=== PATIENT | female | born 1955 | race Caucasian/White ===

== ENCOUNTER → 2022-11-17 | Day surgery (SDC) | payer MEDICARE, OTHER ==
--- NOTE | 2022-11-17 10:29 | MM ---
Date of Procedure: 11/17/22 Preoperative Diagnosis: Microcalcifications of concern right breast Postoperative Diagnosis: Same Procedure(s) Performed: Right breast stereotactic core biopsy Anesthesia: local Surgeon: Azeb Mondragon Pathology: other (Breast tissue with microcalcifications of concern) Condition: stable Disposition: same day Indications for Procedure: Microcalcifications of concern right breast Operative Findings: Radiographic specimen reveals microcalcifications of concern right breast Description of Procedure: The patient is a 67-year-old white female who underwent a routine screening mammogram was noted to have microcalcifications of concern in the right breast in the upper outer quadrant region. Physical examination did not reveal any discrete dominant masses or nodules of concern. Stereotactic core biopsy was recommended. The patient understood and wished to proceed. The patient was taken to the stereotactic core biopsy room. She was positioned prone on the lo-rad table. A product development actuary film was obtained. The lesion of concern was identified. The lesion was targeted. The breast was prepped using Betadine. 20 mL of 1% lidocaine was used to anesthetize the area of concern. A 9-gauge vacuum-assisted core rotating biopsy needle was driven to the correct coordinates. The patient had a prefire film obtained. The needle was noted to be in the correct location. The needle was fired. A postoperative film was obtained and the needle was noted to be in the correct location. 14 core biopsy specimens were obtained. Radiograph of the specimen revealed the microcalcifications of concern had been adequately sampled. A secure ralph top hat clip was placed. This was noted to be in the correct location. The specimen was sent to pathology. The patient will follow with Dr. Jones next week. [facility] HOSPITALPrasanth
== END ==
LOC: RADMAMWWP 07:13
PROVIDERS: ATTEND Surgery
DX: D05.11 Intraductal carcinoma in situ of right breast (principal)
CPT/HCPCS: 19081; 88305; 88342; 88341; A4648

== ENCOUNTER → 2022-11-17 | Outpatient (CLI) | payer MEDICARE, OTHER ==
[2022-11-17 07:40] VITALS: BP 153/84; PULSE 51; RESP 17; TEMP 97.9
--- NOTE | 2022-11-17 07:58 | P.GSHP ---
History of Present Illness H&P Date: 11/17/22 Chief Complaint: Abnormal right breast mammogram Erum is a 67-year-old white female seen in consultation for Pineda Ayala regarding the right breast mammographic abnormality. She underwent a bilateral mammogram and 2823. This revealed the area of concern in the right breast and a right breast diagnostic mammogram on 10-17-22 was performed. This revealed suspicious calcifications the upper outer quadrant of the right breast. Stereotactic core biopsy was recommended. The patient states the right breast feels aching, and some fullness is noted in the OUQ of the right breast. It has been aching for about 6 months. She is not compaining of any nipple discharge. Not complaining of any recent trauma or infection in the breast. She has not had any surgery on her breast. CAffiene: 1 cup/day nicotine: none chocolate: rare BCP: 15 years hormones: patch fro 6 months at menopause Family History: sister: breast cancer dx. at 56 father: testicular cancer Hormonal history: Menarche: 14 , breast fed: yes, age at first : 26 menopause: 43 Surgical History: subtotal thyroidectomy goiter no cancer tonsil 2 C-sections Medical History: COPD essential termers 1 1/2 years ? cause SociaL History: nicotine: none alcohol: none drugs: none - Constitutional Constitutional: Denies chills, Denies fever - EENT Eyes: denies blurred vision, denies pain Ears: deny: decreased hearing, tinnitus Ears, nose, mouth and throat: Denies headache, Denies sore throat - Breasts Breasts: bilateral: as per HPI - Cardiovascular Comment: COPD Cardiovascular: Reports shortness of breath, Denies chest pain - Respiratory Comment: COPD - Gastrointestinal Gastrointestinal: Denies abdominal pain, Denies diarrhea, Denies nausea, Denies vomiting - Genitourinary (Female) Genitourinary: Denies dysuria, Denies hematuria - Menstruation Menstruation: Reports postmenopausal - Musculoskeletal Musculoskeletal: Denies myalgias - Integumentary Comment: Rosacia Integumentary: Reports rash, Denies pruritus - Neurological Neurological: Reports as per HPI - Psychiatric Psychiatric: Denies anxiety, Denies depression - Endocrine Endocrine: Denies fatigue, Denies weight change - Hematologic/Lymphatic Comment: none - Allergic/Immunologic Allergic/Immunologic: Reports seasonal allergies Past Medical History Past Medical History: Asthma Additional Past Medical History / Comment(s): Allergies History of Any Multi-Drug Resistant Organisms: None Reported Past Surgical History: Section, Tonsillectomy Additional Past Surgical History / Comment(s): Partial Thyroidectomy Past Anesthesia/Blood Transfusion Reactions: No Reported Reaction Past Psychological History: No Psychological Hx Reported Smoking Status: Never smoker Past Alcohol Use History: None Reported Past Drug Use History: None Reported Medications and Allergies Home Medications Medication Instructions Recorded Confirmed Type Budesonide-Formot 160-4.5 Mcg 2 puff INHALATION BID 11/08/22 11/17/22 History [Symbicort 160-4.5 Mcg Inhaler] Loratadine [Claritin] 10 mg PO DAILY 11/08/22 11/17/22 History Montelukast [Singulair] 10 mg PO DAILY 11/08/22 11/17/22 History Propranolol [Inderal] 20 mg PO BID 11/08/22 11/17/22 History Allergies Allergy/AdvReac Type Severity Reaction Status Date / Time Sulfa (Sulfonamide Allergy Rash/Hives Verified 11/17/22 07:36 Antibiotics) Surgical - Exam Vital Signs Temp Pulse Resp BP Pulse Ox 97.9 F 51 L 17 153/84 98 11/17/22 07:36 11/17/22 07:36 11/17/22 07:36 11/17/22 07:36 11/17/22 07:36 BMI: 24.2 - General no distress - Eyes normal ocular movement - Neck trachea midline - Respiratory normal respiratory effort, clear to auscultation - Cardiovascular Rhythm: regular Heart Sounds: normal: S1, S2 - Abdomen Abdomen: soft, non tender, no guarding, no rigid, no rebound - Integumentary normal turgor - Neurologic no disoriented, no combative - Musculoskeletal normal gait - Psychiatric oriented to time, oriented to person, oriented to place, speech is normal, memory intact Breast Exam: BRA: 36B Inspection: Right breast slightly larger than the left breast, bilateral grade 2 ptosis Palpation: Right breast: Multi-positional exam fibrocystic changes, dense breasts no dominant masses or nodules of concern Right axilla: No adenopathy of concern Left breast: Multi-positional exam fibrocystic changes no dominant masses or nodules of concern slightly less dense than the right breast Left axilla: No adenopathy of concern Results Mammogram reviewed microcalcifications of concern right breast upper outer quadrant Assessment and Plan Assessment: Impression: Abnormal right breast mammogram Right breast slightly larger than left breast Fibrocystic breast changes Family history of cancer COPD Status post subtotal thyroidectomy Plan: Stereotactic core biopsy right breast Risk and benefits of the procedure discussed with the patient. Risks include but are not limited to bleeding, infection, reaction to the anesthetic. If the biopsy results were discordant further tissue acquisition may be necessary. Patient understands and wishes to proceed. Cc: Mariah Ayala
== END ==
LOC: WWCWWP 07:09
PROVIDERS: ATTEND Surgery
DX: R92.8 Other abnormal and inconclusive findings on diagnostic imaging of breast (principal); J44.9 Chronic obstructive pulmonary disease, unspecified; J45.909 Unspecified asthma, uncomplicated; Z88.2 Allergy status to sulfonamides

== ENCOUNTER → 2022-11-24 | Outpatient (CLI) | payer MEDICARE, OTHER ==
[2022-11-24 08:44] VITALS: BP 158/85; PULSE 49; RESP 17; TEMP 98
--- NOTE | 2022-11-24 08:48 | P.PN ---
Subjective Progress Note Date: 11/24/22 Principal diagnosis: high grade DCIS right breast Erum is a 67-year-old white female seen in consultation for Pineda Ayala regarding the right breast mammographic abnormality. She underwent a bilateral mammogram and 2823. This revealed the area of concern in the right breast and a right breast diagnostic mammogram on 10-17-22 was performed. This revealed suspicious calcifications the upper outer quadrant of the right breast. Stereotactic core biopsy was recommended. The patient states the right breast feels aching, and some fullness is noted in the OUQ of the right breast. It has been aching for about 6 months. She is not compaining of any nipple discharge. Not complaining of any recent trauma or infection in the breast. She has not had any surgery on her breast. 11-24-22 Erum underwent a stero tactic biopsy of the right breast on 11-17-22. Pathology was high grade DCIS. It extends about 2.5 cm. she tolerated the procedure without difficulty. CAffiene: 1 cup/day nicotine: none chocolate: rare BCP: 15 years hormones: patch fro 6 months at menopause Family History: sister: breast cancer dx. at 56 father: testicular cancer Hormonal history: Menarche: 14 , breast fed: yes, age at first : 26 menopause: 43 Surgical History: subtotal thyroidectomy goiter no cancer tonsil 2 C-sections Medical History: COPD essential termers 1 1/2 years ? cause SociaL History: nicotine: none alcohol: none drugs: none - Constitutional Constitutional: Denies chills, Denies fever - EENT Eyes: denies blurred vision, denies pain Ears: deny: decreased hearing, tinnitus Ears, nose, mouth and throat: Denies headache, Denies sore throat - Breasts Breasts: bilateral: as per HPI - Cardiovascular Comment: COPD Cardiovascular: Reports shortness of breath, Denies chest pain - Respiratory Comment: COPD - Gastrointestinal Gastrointestinal: Denies abdominal pain, Denies diarrhea, Denies nausea, Denies vomiting - Genitourinary (Female) Genitourinary: Denies dysuria, Denies hematuria - Menstruation Menstruation: Reports postmenopausal - Musculoskeletal Musculoskeletal: Denies myalgias - Integumentary Comment: Rosacia Integumentary: Reports rash, Denies pruritus - Neurological Neurological: Reports as per HPI - Psychiatric Psychiatric: Denies anxiety, Denies depression - Endocrine Endocrine: Denies fatigue, Denies weight change - Hematologic/Lymphatic Comment: none - Allergic/Immunologic Allergic/Immunologic: Reports seasonal allergies Past Medical History Past Medical History: Asthma Additional Past Medical History / Comment(s): Allergies History of Any Multi-Drug Resistant Organisms: None Reported Past Surgical History: Section, Tonsillectomy Additional Past Surgical History / Comment(s): Partial Thyroidectomy Past Anesthesia/Blood Transfusion Reactions: No Reported Reaction Past Psychological History: No Psychological Hx Reported Smoking Status: Never smoker Past Alcohol Use History: None Reported Past Drug Use History: None Reported Medications and Allergies Home Medications Medication Instructions Recorded Confirmed Type Budesonide-Formot 160-4.5 Mcg 2 puff INHALATION BID 11/08/22 11/17/22 History [Symbicort 160-4.5 Mcg Inhaler] Loratadine [Claritin] 10 mg PO DAILY 11/08/22 11/17/22 History Montelukast [Singulair] 10 mg PO DAILY 11/08/22 11/17/22 History Propranolol [Inderal] 20 mg PO BID 11/08/22 11/17/22 History Allergies Objective - Vital Signs Vital signs: Intake & Output 11/23/22 11/24/22 11/24/22 18:59 06:59 18:59 Weight 58.06 kg - Constitutional General appearance: Present: cooperative - EENT Eyes: Present: EOMI ENT: Present: hearing grossly normal - Neck Neck: Present: normal ROM - Respiratory Respiratory: bilateral: CTA - Cardiovascular Rhythm: regular Heart sounds: normal: S1, S2 - Integumentary Integumentary: Present: normal turgor - Musculoskeletal Musculoskeletal: Present: gait normal - Psychiatric Psychiatric: Present: A&O x's 3, appropriate affect, intact judgment & insight - Additional findings Additional findings: Breast Exam: BRA: 36C Inspection: Right breast mild ecchymosis at biopsy site, no evidence of any infection or hematoma 6 examination taken from 11-17-21 Right breast slightly larger than left breast Palpation: Right breast multiple positional exam fibrocystic changes, dense breasts, no dominant masses or notches of concern Right axilla: No adenopathy of concern Left breast: Multi-positional exam fibrocystic changes no dominant masses or nodules of concern Left axilla: No adenopathy of concern Assessment and Plan Assessment: Pressure: DCIS right breast approximately 2.5 cm Right breast slightly larger than left Fibrocystic breast changes Family history of cancer COPD Status post subtotal thyroidectomy Plan: Presentation of case at tumor board Most likely needle localization lumpectomy with sentinel lymph node biopsy CC: Mariah Ayala
== END ==
LOC: WWCWWP 08:26
PROVIDERS: ATTEND Surgery
DX: D05.11 Intraductal carcinoma in situ of right breast (principal); N60.11 Diffuse cystic mastopathy of right breast; Z80.3 Family history of malignant neoplasm of breast; Z79.51 Long term (current) use of inhaled steroids; J44.9 Chronic obstructive pulmonary disease, unspecified; E89.0 Postprocedural hypothyroidism; Z88.2 Allergy status to sulfonamides

== ENCOUNTER 2023-01-17 10:37 | Day surgery (SDC) | payer MEDICARE, OTHER ==
[~2023-01-17 10:37] MED LIST: HEPARIN SODIUM,PORCINE/PF 5,000 UNIT/0.5 ML SYRINGE SQ PRN; Pre Op ABX Message 1 EACH MISC MISCELLANE ONE
[2023-01-17] MEDS ORDERED: ONDANSETRON 4 MG/2 ML VIAL IVP ONE (11:02)
[2023-01-17] MEDS ORDERED: MIDAZOLAM 2 MG/2 ML VIAL IV PRN (11:02)
[2023-01-17] MEDS ORDERED: LACTATED RINGERS 1,000 ML IV SCH (11:02)
[2023-01-17] MEDS ORDERED: HYDROmorphone 0.5 MG/0.5 ML SYRINGE IVP PRN (11:02)
[2023-01-17] MEDS ORDERED: LIDOCAINE 1% (10MG/ML) FOR IV START INTRADERMA PRN (11:02)
[2023-01-17] MEDS ORDERED: DEXAMETHASONE SOD PHOSPHATE 4 MG/ML 1 ML VIAL IV ONE (11:02)
[2023-01-17] MEDS ORDERED: LIDOCAINE 1% (10MG/ML) FOR IV START SQ ONE (12:08)
--- NOTE | 2023-01-17 12:35 | P.NAPBC ---
NAPBC Queries - NAPBC Queries Was patient's case review presented at [facility] tumor board? If no, comment.: Yes Was patient's pathology reviewed at [facility]? If no, comment.: Yes Was breast conservation surgery offered? If no, comment.: Yes Was sentinel node biopsy offered? If no, comment.: Yes Was diagnosis confirmed by percutaneous core biopsy? If no, comment.: Yes Is patient mastectomy patient?: No Was a preop referral to reconstructive surgeon offered?: No Clinical Stage: right breast stage O DCIS 2.5 CM
[2023-01-17] MEDS ORDERED: DEXAMETHASONE SOD PHOSPHATE 4 MG/ML 1 ML VIAL ONE (13:06)
[2023-01-17] MEDS ORDERED: MIDAZOLAM 2 MG/2 ML VIAL ONE (13:06)
[2023-01-17] MEDS ORDERED: GLYCOPYRROLATE 0.2 MG/ML 2 ML VIAL ONE (13:06)
[2023-01-17] MEDS ORDERED: SUCCINYLCHOLINE CHLORIDE 200 MG/10 ML VIAL IV ONE (13:06)
[2023-01-17] MEDS ORDERED: ONDANSETRON 4 MG/2 ML VIAL ONE (13:06)
[2023-01-17] MEDS ORDERED: LIDOCAINE 2% INJ 20 MG/ML (2 ML VIAL) ONE (13:06)
[2023-01-17] MEDS ORDERED: fentaNYL (PF) 50 MCG/ML 2 ML AMP ONE (13:06)
[2023-01-17] MEDS ORDERED: PHENYLEPHRINE-0.9% NACL SYG 1,000 MCG/10 ML SYRINGE ONE (13:06)
--- NOTE | 2023-01-17 14:27 | P.OP ---
Date of Procedure: 01/17/23 Preoperative Diagnosis: Right breast DCIS Postoperative Diagnosis: Same Procedure(s) Performed: Right breast needle localization lumpectomy, sentinel node biopsy, onco-plastic tissue transfer 32 centimeters squared Anesthesia: DALLASA Surgeon: Azeb Mondragon Estimated Blood Loss (ml): 10 IV fluids (ml): 500 Pathology: other ([place] node biopsy, lumpectomy specimen) Condition: stable Disposition: same day Indications for Procedure: Biopsy-proven DCIS right breast Operative Findings: Dense breast tissue Description of Procedure: The patient is a 67-year-old white female with a biopsy-proven DCIS of the right breast. She was initially seen in the radiology department where radioactive tracer was injected into the periareolar region as well as bracketing of the area of concern. The reason for sentinel node biopsy was secondary to the extent of the tumor. The patient was then taken to the operating room. Following induction of anesthesia the axilla was interrogated using the neoprobe. The patient was noted to have radioactivity in the axilla. The patient was then prepped and draped in a sterile fashion. The area of the axilla was approached initially. The incision was placed at the area of greatest radioactivity. Dissection down into the axilla revealed 2 sentinel lymph nodes. Both were resected using the Harmonic scalpel. The 10 second count on the first was 959, 10 second count of the second 9 mm 2483. The background count was minimal. After we were assured that hemostasis was attained the wound was well irrigated. The deep tissues were closed using 3-0 Vicryl suture. The skin was closed using 4-0 Monocryl. The area of the breast was then approached. An incision was made and carried down to the shaft of both needles. The needles were grasped using an Allis clamp. Dissection was performed onto the pectoralis muscle. Wide excision around the needles was performed. The cavity was well irrigated. The cavity was evaluated for hemostasis. The cavity was 6cm x 2 cm. The specimen was painted for orientation. Radiograph revealed that the area of concern had been removed. The cavity again was well irrigated. Titanium clips were placed. A superior piller of 5 x 2 cm was formed and an inferior pillar which was 5 x 2 cm was formed. After we were assured that hemostasis was attained the deep tissues were brought together using 3-0 Vicryl suture. Total onco- plastic tissue transfer was 32 cm. Following this the subcutaneous tissue was closed with 3-0 Vicryl suture followed by closure of the subcuticular tissue with 4-0 Monocryl. The patient tolerated the procedure in stable condition. All instrument and sponge counts were correct at the end of the case.
--- NOTE | 2023-01-17 14:29 | P.DS ---
Providers Attending physician: Azeb Mondragon Primary care physician: Kevin Smith Plan - Discharge Summary Discharge Rx Participant: No New Discharge Prescriptions: No Action Propranolol [Inderal] 20 mg PO BID Montelukast [Singulair] 10 mg PO DAILY Loratadine [Claritin] 10 mg PO DAILY Budesonide-Formot 160-4.5 Mcg [Symbicort 160-4.5 Mcg Inhaler] 2 puff INHALATION BID Clindamycin Phosphate [Clindagel 1%] 1 applic TOPICAL DAILY Discharge Medication List Budesonide-Formot 160-4.5 Mcg [Symbicort 160-4.5 Mcg Inhaler] 2 puff INHALATION BID 11/08/22 [History] Loratadine [Claritin] 10 mg PO DAILY 11/08/22 [History] Montelukast [Singulair] 10 mg PO DAILY 11/08/22 [History] Propranolol [Inderal] 20 mg PO BID 11/08/22 [History] Clindamycin Phosphate [Clindagel 1%] 1 applic TOPICAL DAILY 01/17/23 [History] Follow up Appointment(s)/Referral(s): Azeb Mondragon MD [STAFF PHYSICIAN] - 1 Week Activity/Diet/Wound Care/Special Instructions: do not drive for 24 hours after discharge or if taking narcotic pain medicine wear bra at all times May shower after 48 hours Discharge Disposition: HOME SELF-CARE
[2023-01-17 14:46] VITALS: TEMP 97
--- NOTE | 2023-01-17 15:00 | NM ---
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 The benefits, alternatives, and risks were discussed. An informed consent was then obtained. Overlying skin is cleaned with sterile alcohol. Following this, 475 uCi Tc99m Tilmanocept was inject ed in the upper outer aspect of the right nipple intradermally. The patient tolerated the procedure well without any immediate complication. The patient was kept in the radiology department for short stay after the procedure and then taken to surgery for surgical p rocedure what is presumed intraoperative gamma probe will be used for sentinel lymph node detection. IMPRESSION: Right breast radiotracer injection for sentinel node localization as above.
[2023-01-17 16:00] VITALS: BP 125/73; PULSE 67; RESP 20
--- NOTE | 2023-01-25 08:14 | MM ---
Pathology Description: Approach: Lateral to Medial Needle Type: 7 cm Kopan The procedure of needle localization with wire placement and than surgical excision was explained to the patient. Benefits, alternatives, and risks were discussed. An informed consent was then obtained. The shortest pathway for procedure was chosen. Shortest pathway was a lateral approach. Bracketing technique was utilized. The overlying skin was prepped and draped in usual sterile fashion. Lidocaine was used as anesthetic into the skin and subcutaneous tissue up to the level of area of concern. Anteriorly, a 7 cm Kopan's needle was used. Posteriorly, a 9 cm Kopan's needle was used. These were placed via a lateral approach under mammographic guidance. Subsequent 90 degrees mammogram show the needle to be in satisfactory position relative to the targeted area. At this point, wire was placed and the needle was withdrawn. The wire was fixed to patient's skin. Images were marked for surgeon. The patient tolerated the procedure well without any immediate complication. The patient was kept in the radiology department for short stay after the procedure and then taken to surgery for surgical excision. Targeted calcifications , biopsy clip, and both wires are identified in specimen mammogram. The patient was kept in hospital for short stay after the procedure and then discharged home in stable condition. IMPRESSION: Successful, uncomplicated needle localization with wire placement (bracketing technique) and surgical excision of biopsy-proven DCIS in the right breast, full pathology results to follow. Pathology Results: Result: Malignant, Ductal carcinoma in situ, comedo type. A. RIGHT BREAST, SENTINEL LYMPH NODE #1: Benign breast tissue with fibrocystic changes. No lymph node is identified. B. RIGHT BREAST, SENTINEL LYMPH NODE #2: Two lymph nodes negative for metastasis. CK7 and UMA immunoperoxidase stains performed on blocks B1 and B2 are confirmatory (controls appropriate). C. RIGHT BREAST, LUMPECTOMY: High grade ductal carcinoma in situ (DCIS) with lobular extension, comedo necrosis and calcifications focally involving the posterior margin and less than 1 mm from the superior margin. Other margins negative. See Surgical Pathology Cancer Case Summary. Notes SURGICAL PATHOLOGY CANCER CASE SUMMARY - INVASIVE CARCINOMA OF THE BREAST, RESECTION: PROCEDURE: Excision (less than total mastectomy). SPECIMEN LATERALITY: Right. HISTOLOGIC TYPE OF INVASIVE CARCINOMA: Ductal carcinoma in situ. SIZE (EXTENT)OF DCIS: Estimated size (extent) of DCIS is at least 2.1 cm by direct measurement. NUCLEAR GRADE: Grade 3. NECROSIS: Present, central (expansive "comedo" necrosis). MICROCALCIFICATIONS: Present in DCIS. MARGINS: DCIS focally involves the posterior margin and is focally less than 1 mm from the superior margin. Other margins negative. REGIONAL LYMPH NODES: NUMBER OF LYMPH NODES EXAMINED: 2 NUMBER OF SENTINEL NODES EXAMINED: 2 NUMBER OF LYMPH NODES WITH MACROMETASTASES, MICROMETASTASES, OR ISOLATED TUMOR CELLS: 0. PATHOLOGIC STAGE CLASSIFICATION (pTNM, AJCC 8TH Edition): PRIMARY TUMOR: pTis (DCIS). REGIONAL LYMPH NODES: (sn)pN0. DISTANT METASTASIS: Not applicable. ADDITIONAL FINDINGS: Previous biopsy site and fibrocystic changes. ANCILLARY STUDIES: ER and MA studies were performed on the previous core biopsy ([id number]). Overall Assessment: Malignant Management: Surgical Consultation of the right breast. Electronically signed and approved by: Juan F Sher M.D. Radiologist
== END 2023-01-17 16:49 | disposition home or self-care (01) ==
LOC: OR 10:37
PROVIDERS: ATTEND Surgery
DX: D05.11 Intraductal carcinoma in situ of right breast (principal)
CPT/HCPCS: 19301; 38525; 14001; 88342; 88307; 88341; 76098; 38792; C1819 ×2; A9520; J2250; J0330; J1100; J2405; J3010; J2370; J1644; J2001

== ENCOUNTER → 2023-01-26 | Outpatient (CLI) | payer MEDICARE, OTHER ==
[2023-01-26 14:28] VITALS: BP 134/77; PULSE 56; RESP 18; TEMP 97.8
--- NOTE | 2023-01-26 14:55 | P.PN ---
Progress Note - Text Progress Note Date: 01/26/23 Erum is a 67 white female status post [place] [id number]. Postoperatively she has done well. She did have a 2.1 cm area of DCIS which was grade 3. It was less than 1 mm from the superior margin. She had a focal area which was positive posteriorly. Posteriorly dissection was onto the pectoralis muscle. I discussed this with the patient and her sister. We'll cases going to be presented at tumor board and recommendation will either be for radiation with close surveillance or repeat resection in the operating room. Examination: Lungs: Clear Heart: Regular rate and rhythm Incisions: Clean and dry Impression: DCIS with close margins superior and focally positive margin on the pectoralis muscle ER/TX negative Plan: Presentation of case at tumor board Appointment with radiation oncology Follow-up here in 1 month CC: Mariah Ayala
== END ==
LOC: WWCWWP 14:16
PROVIDERS: ATTEND Surgery
DX: D05.11 Intraductal carcinoma in situ of right breast (principal); Z88.2 Allergy status to sulfonamides

== ENCOUNTER → 2023-03-02 | Outpatient (CLI) | payer MEDICARE, OTHER ==
[2023-03-02 09:13] VITALS: BP 134/73; PULSE 45; RESP 18; TEMP 98.1
--- NOTE | 2023-03-02 09:27 | P.PN ---
Progress Note - Text Progress Note Date: 03/02/23 Progress Note - Text Progress Note Date: 01/26/23 Erum is a 67 white female status post right breast lumpectomy and sentinel node biopsy on . Postoperatively she has done well. She did have a 2.1 cm area of DCIS which was grade 3. It was less than 1 mm from the superior margin. She had a focal area which was positive posteriorly. Posteriorly dissection was onto the pectoralis muscle. I discussed this with the patient and her sister. We'll cases going to be presented at tumor board and recommendation will either be for radiation with close surveillance or repeat resection in the operating room. Her case was presented at tumor board and 6622. It was felt that she did not need any further resection. She has high-grade DCIS which is ER/MT negative. She did have a positive focal area posteriorly and superiorly the lesion was less than 1 mm from the superior margin. Pathology was reviewed as well as her radiograph at tumor board. It was felt that she did not require be resection as her surgical resection was onto the pectoralis muscle. She is having radiation therapy. She is doing well at this time. Started her radiation therapy earlier this week. She is tolerating it without difficulty. Examination: Lungs: Clear Heart: Regular rate and rhythm Incisions: Clean and dry; mild erythema believed to be related to the radiation treatment Impression: DCIS with close margins superior and focally positive margin on the pectoralis muscle ER/MT negative Plan: Presentation of case at tumor board done on 6622 Started radiation therapy 02-28-23 Follow-up here in 4 months CC: Mariah Ayala Additional CC's: Mariah Ayala
== END ==
LOC: WWCWWP 09:01
PROVIDERS: ATTEND Surgery
DX: D05.11 Intraductal carcinoma in situ of right breast (principal); Z17.1 Estrogen receptor negative status [ER-]; Z90.11 Acquired absence of right breast and nipple; Z88.2 Allergy status to sulfonamides

== ENCOUNTER → 2023-07-20 | Outpatient (CLI) | payer MEDICARE, OTHER ==
[2023-07-20 16:05] VITALS: BP 114/74; PULSE 90; RESP 17; TEMP 97.8
--- NOTE | 2023-07-20 16:22 | P.PN ---
Subjective Progress Note Date: 07/20/23 Erum is a 67-year-old white female who was initially seen in consultation for Mariah Ayala regarding right breast mammographic abnormality. She underwent a bilateral mammogram on 2822. This revealed an area of concern in the right breast and right breast diagnostic mammogram was performed. This led to stero tactic core biopsy on this revealed high-grade DCIS. The area extended approximately 2.5 cm. She has not felt anything of concern in either breast. She was not complaining of any recent trauma or infection in the breast. The patient on 01-17-23 underwent lumpectomy and SNB. She had a 2.1 cm area of grade 3 DCIS, node (-). Close posterior margin represented at tumor board and re-excision not recommended. Note Dr. Wall reviewed completed radiation on 04-04-23 note 03-02-23 DR. Hall reviewed no endocrine therapy as hormone receptor (-) She has noted an area of tenderness in the lateral aspect of the left breast, it has not changed since her surgery CAffiene: 1 cup/day nicotine: none chocolate: rare BCP: 15 years hormones: patch fro 6 months at menopause Family History: sister: breast cancer dx. at 56 father: testicular cancer Hormonal history: Menarche: 14 , breast fed: yes, age at first : 26 menopause: 43 Surgical History: subtotal thyroidectomy goiter no cancer tonsil 2 C-sections Medical History: COPD essential termers 1 1/2 years ? cause SociaL History: nicotine: none alcohol: none drugs: none - Constitutional Constitutional: Denies chills, Denies fever - EENT Eyes: denies blurred vision, denies pain Ears: deny: decreased hearing, tinnitus Ears, nose, mouth and throat: Denies headache, Denies sore throat - Breasts Breasts: bilateral: as per HPI - Cardiovascular Comment: COPD Cardiovascular: Reports shortness of breath, Denies chest pain - Respiratory Comment: COPD - Gastrointestinal Gastrointestinal: Denies abdominal pain, Denies diarrhea, Denies nausea, Denies vomiting - Genitourinary (Female) Genitourinary: Denies dysuria, Denies hematuria - Menstruation Menstruation: Reports postmenopausal - Musculoskeletal Musculoskeletal: Denies myalgias - Integumentary Comment: Rosacia Integumentary: Reports rash, Denies pruritus - Neurological Neurological: Reports as per HPI - Psychiatric Psychiatric: Denies anxiety, Denies depression - Endocrine Endocrine: Denies fatigue, Denies weight change - Hematologic/Lymphatic Comment: none - Allergic/Immunologic Allergic/Immunologic: Reports seasonal allergies Past Medical History Past Medical History: Asthma Additional Past Medical History / Comment(s): Allergies History of Any Multi-Drug Resistant Organisms: None Reported Past Surgical History: Section, Tonsillectomy Additional Past Surgical History / Comment(s): Partial Thyroidectomy Past Anesthesia/Blood Transfusion Reactions: No Reported Reaction Past Psychological History: No Psychological Hx Reported Smoking Status: Never smoker Past Alcohol Use History: None Reported Past Drug Use History: None Reported Medications and Allergies Home Medications Medication Instructions Recorded Confirmed Type Budesonide-Formot 160-4.5 Mcg 2 puff INHALATION BID 11/08/22 11/17/22 History [Symbicort 160-4.5 Mcg Inhaler] Loratadine [Claritin] 10 mg PO DAILY 11/08/22 11/17/22 History Montelukast [Singulair] 10 mg PO DAILY 11/08/22 11/17/22 History Propranolol [Inderal] 20 mg PO BID 11/08/22 11/17/22 History Allergies Objective - Vital Signs Vital signs: Vital Signs Temp 97.8 F 07/20/23 15:59 Pulse 90 07/20/23 15:59 Resp 17 07/20/23 15:59 BP 114/74 07/20/23 15:59 Pulse Ox 97 07/20/23 15:59 FiO2 Intake & Output 07/19/23 07/20/23 07/20/23 18:59 06:59 18:59 Weight 59.874 kg - Constitutional General appearance: Present: cooperative - EENT Eyes: Present: EOMI ENT: Present: hearing grossly normal - Neck Neck: Present: normal ROM - Respiratory Respiratory: bilateral: CTA - Cardiovascular Rhythm: regular Heart sounds: normal: S1, S2 - Gastrointestinal General gastrointestinal: Present: soft - Integumentary Integumentary: Present: normal turgor - Musculoskeletal Musculoskeletal: Present: gait normal - Psychiatric Psychiatric: Present: A&O x's 3, appropriate affect, intact judgment & insight - Additional findings Additional findings: Breast Exam: BRA: 36C Inspection: Bilateral grade 2 ptosis, well-healed scar right breast from prior surgery Palpation: Right breast: Multi-positional exam fibrocystic changes, postradiation and surgical changes Right axilla: No adenopathy of concern Left breast: Multi-positional exam fibrocystic changes, no dominant masses or nodules of concern Left axilla: No adenopathy of concern Assessment and Plan Assessment: Impression: Patient doing well at this time status post right breast lumpectomy and radiation therapy for 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 Yee, Mariah Ayala
== END ==
LOC: WWCWWP 15:28
PROVIDERS: ATTEND Surgery
DX: Z12.31 Encounter for screening mammogram for malignant neoplasm of breast (principal); D05.11 Intraductal carcinoma in situ of right breast; L76.82 Other postprocedural complications of skin and subcutaneous tissue; Z92.3 Personal history of irradiation; Z80.3 Family history of malignant neoplasm of breast; Z85.3 Personal history of malignant neoplasm of breast; Z79.51 Long term (current) use of inhaled steroids; Z87.09 Personal history of other diseases of the respiratory system; Z88.2 Allergy status to sulfonamides

== ENCOUNTER → 2023-10-09 | Outpatient (CLI) | payer MEDICARE, OTHER ==
--- NOTE | 2023-10-09 11:25 | MM ---
Reason for Exam: Hx of breast cancer, conservation therapy. Last screening mammogram was performed 12 month(s) ago. Patient History: Menarche at age 13. First Full-Term at age 26. Postmenopausal. Patient has history of breast feeding. Breast cancer, right, age 67. Breast cancer, right, age 67. Previous chest radiation therapy at age 67. 01/17/2023, Lumpectomy on the Right side. 01/17/2023, Malignant MG pre op needle loc RT on the right side. 11/17/2022, Malignant MG stereo VAD BX RT on the right side. Sister had breast cancer, age 56. Prior Study Comparison: 10/12/2022 Bilateral Screening Mammogram, [facility]. 10/17/2022 Right MG work up mamm w CAD RT, [facility]. Tissue Density: There are scattered fibroglandular densities. Findings: Analyzed By CAD. Postprocedural changes right breast with surgical clips present. There is increased density in the surgical bed. Scar noted. No new suspicious masses, calcifications or distortions. Overall Assessment: Benign, BI-RAD 2 Management: Diagnostic Mammogram of both breasts in 1 year. Results were given to the patient verbally at the time of exam. Patient should continue monthly self-breast exams. A clinical breast exam by your physician is recommended on an annual basis. This exam should not preclude additional follow-up of suspicious palpable abnormalities. Note on Isa scores and lifetime risk: 1. A Isa score greater than 3% is considered moderate risk. If this is the case, consider specialist referral to assess eligibility for a risk reducing agent. 2. If overall lifetime risk for the development of breast cancer is 20% or higher, the patient may qualify for future screening with alternating mammogram and breast MRI. Electronically signed and approved by: Timmy Silver DO
== END | disposition home or self-care (01) ==
LOC: RADMAMWWP 10:50
PROVIDERS: ATTEND Surgery
DX: R92.323 Mammographic fibroglandular density, bilateral breasts (principal); Z85.3 Personal history of malignant neoplasm of breast; Z80.3 Family history of malignant neoplasm of breast
CPT/HCPCS: 77066; G0279; 77062

== ENCOUNTER → 2023-10-19 | Outpatient (CLI) | payer MEDICARE, OTHER ==
[2023-10-19 10:23] VITALS: BP 167/68; PULSE 100; RESP 17; TEMP 97.8
--- NOTE | 2023-10-19 10:31 | P.PN ---
Subjective Progress Note Date: 10/19/23 Principal diagnosis: DCIS right breast 202210-29-23 Erum is a 68-year-old white female who was initially seen in consultation for Mariah Ayala regarding right breast mammographic abnormality. She underwent a bilateral mammogram on 2822. This revealed an area of concern in the right breast and right breast diagnostic mammogram was performed. This led to stero tactic core biopsy on this revealed high-grade DCIS. The area extended approximately 2.5 cm. She has not felt anything of concern in either breast. She was not complaining of any recent trauma or infection in the breast. The patient on 01-17-23 underwent lumpectomy and SNB. She had a 2.1 cm area of grade 3 DCIS, node (-). Close posterior margin represented at tumor board and re-excision not recommended. Note 05-09-23 Dr. Wall reviewed completed radiation on 04-04-23; focally (+) posterior margin note 03-02-23 DR. Hall reviewed no endocrine therapy as hormone receptor (-) She has noted an area of tenderness in the lateral aspect of the left breast, it has not changed since her surgery Bilateral mammogram on 10-09-23 BIRAD 2; personally reviewed CAffiene: 1 cup/day nicotine: none chocolate: rare BCP: 15 years hormones: patch fro 6 months at menopause Family History: sister: breast cancer dx. at 56 father: testicular cancer Hormonal history: Menarche: 14 , breast fed: yes, age at first : 26 menopause: 43 Surgical History: subtotal thyroidectomy goiter no cancer tonsil 2 C-sections Medical History: COPD essential termers 1 1/2 years ? cause SociaL History: nicotine: none alcohol: none drugs: none - Constitutional Constitutional: Denies chills, Denies fever - EENT Eyes: denies blurred vision, denies pain Ears: deny: decreased hearing, tinnitus Ears, nose, mouth and throat: Denies headache, Denies sore throat - Breasts Breasts: bilateral: as per HPI - Cardiovascular Comment: COPD Cardiovascular: Reports shortness of breath, Denies chest pain - Respiratory Comment: COPD - Gastrointestinal Gastrointestinal: Denies abdominal pain, Denies diarrhea, Denies nausea, Denies vomiting - Genitourinary (Female) Genitourinary: Denies dysuria, Denies hematuria - Menstruation Menstruation: Reports postmenopausal - Musculoskeletal Musculoskeletal: Denies myalgias - Integumentary Comment: Rosacia Integumentary: Reports rash, Denies pruritus - Neurological Neurological: Reports as per HPI - Psychiatric Psychiatric: Denies anxiety, Denies depression - Endocrine Endocrine: Denies fatigue, Denies weight change - Hematologic/Lymphatic Comment: none - Allergic/Immunologic Allergic/Immunologic: Reports seasonal allergies Past Medical History Past Medical History: Asthma Additional Past Medical History / Comment(s): Allergies History of Any Multi-Drug Resistant Organisms: None Reported Past Surgical History: Section, Tonsillectomy Additional Past Surgical History / Comment(s): Partial Thyroidectomy Past Anesthesia/Blood Transfusion Reactions: No Reported Reaction Past Psychological History: No Psychological Hx Reported Smoking Status: Never smoker Past Alcohol Use History: None Reported Past Drug Use History: None Reported Medications and Allergies Home Medications Medication Instructions Recorded Confirmed Type Budesonide-Formot 160-4.5 Mcg 2 puff INHALATION BID 11/08/22 11/17/22 History [Symbicort 160-4.5 Mcg Inhaler] Loratadine [Claritin] 10 mg PO DAILY 11/08/22 11/17/22 History Montelukast [Singulair] 10 mg PO DAILY 11/08/22 11/17/22 History Propranolol [Inderal] 20 mg PO BID 11/08/22 11/17/22 History Allergies Objective - Vital Signs Vital signs: Intake & Output 10/18/23 10/19/23 10/19/23 18:59 06:59 18:59 Weight 58.06 kg - Constitutional General appearance: Present: cooperative - EENT Eyes: Present: EOMI ENT: Present: hearing grossly normal - Neck Neck: Present: normal ROM - Respiratory Respiratory: bilateral: CTA - Cardiovascular Heart sounds: normal: S1, S2 - Gastrointestinal General gastrointestinal: Present: soft - Integumentary Integumentary: Present: normal turgor - Musculoskeletal Musculoskeletal: Present: gait normal - Psychiatric Psychiatric: Present: A&O x's 3, appropriate affect, intact judgment & insight - Additional findings Additional findings: Breast Exam: BRA: 36C Inspection: Bilateral grade 2 ptosis, well-healed scar right breast from prior surgery Palpation: Right breast: Multi-positional exam fibrocystic changes, postradiation and surgical changes, tender at site of prior lumpectomy Right axilla: No adenopathy of concern Left breast: Multi-positional exam fibrocystic changes, no dominant masses or nodules of concern Left axilla: No adenopathy of concern Assessment and Plan Assessment: Impression: Patient doing well at this time status post right breast lumpectomy and radiation therapy for 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 Smith, Mariah Ayala
== END ==
LOC: WWCWWP 09:01
PROVIDERS: ATTEND Surgery
DX: D05.11 Intraductal carcinoma in situ of right breast (principal); J44.9 Chronic obstructive pulmonary disease, unspecified; Z98.890 Other specified postprocedural states; Z88.2 Allergy status to sulfonamides; Z80.3 Family history of malignant neoplasm of breast; Z92.3 Personal history of irradiation; Z79.51 Long term (current) use of inhaled steroids

== ENCOUNTER → 2024-05-09 | Outpatient (CLI) | payer MEDICARE, OTHER ==
[2024-05-09 13:17] VITALS: BP 107/72; PULSE 86; RESP 16; TEMP 98.1
--- NOTE | 2024-05-09 13:39 | P.PN ---
Subjective Progress Note Date: 05/09/24 Principal diagnosis: DCIS right breast 05-09-24 Principal diagnosis: DCIS right breast 202210-29-23 Erum is a 68-year-old white female who was initially seen in consultation for Mariah Ayala regarding right breast mammographic abnormality. She underwent a bilateral mammogram on 2822. This revealed an area of concern in the right breast and right breast diagnostic mammogram was performed. This led to stero tactic core biopsy on this revealed high-grade DCIS. The area extended approximately 2.5 cm. She has not felt anything of concern in either breast. She was not complaining of any recent trauma or infection in the breast. The patient on 01-17-23 underwent lumpectomy and SNB. She had a 2.1 cm area of grade 3 DCIS, node (-). Close posterior margin represented at tumor board and re-excision not recommended. Note 05-09-23 Dr. Wall reviewed completed radiation on 04-04-23; focally (+) posterior margin note 03-02-23 DR. Hall reviewed no endocrine therapy as hormone receptor (-) She has noted an area of tenderness in the lateral aspect of the left breast, it has not changed since her surgery Bilateral mammogram on 10-09-23 BIRAD 2; personally reviewed 05-09-24 She is not complaining of any new lumps masses or nodules of concern in either breast. Bilateral mammogram 10-09-23 BIRRAD 2 no hormone therapy note 11-14-23 Dr. Valero reviewed CAffiene: 1 cup/day nicotine: none chocolate: rare BCP: 15 years hormones: patch fro 6 months at menopause Family History: sister: breast cancer dx. at 56 father: testicular cancer Hormonal history: Menarche: 14 , breast fed: yes, age at first : 26 menopause: 43 Surgical History: subtotal thyroidectomy goiter no cancer tonsil 2 C-sections Medical History: COPD essential termers 1 1/2 years ? cause SociaL History: nicotine: none alcohol: none drugs: none - Constitutional Constitutional: Denies chills, Denies fever - EENT Eyes: denies blurred vision, denies pain Ears: deny: decreased hearing, tinnitus Ears, nose, mouth and throat: Denies headache, Denies sore throat - Breasts Breasts: bilateral: as per HPI - Cardiovascular Comment: COPD Cardiovascular: Reports shortness of breath, Denies chest pain - Respiratory Comment: COPD - Gastrointestinal Gastrointestinal: Denies abdominal pain, Denies diarrhea, Denies nausea, Denies vomiting - Genitourinary (Female) Genitourinary: Denies dysuria, Denies hematuria - Menstruation Menstruation: Reports postmenopausal - Musculoskeletal Musculoskeletal: Denies myalgias - Integumentary Comment: Rosacia Integumentary: Reports rash, Denies pruritus - Neurological Neurological: Reports as per HPI - Psychiatric Psychiatric: Denies anxiety, Denies depression - Endocrine Endocrine: Denies fatigue, Denies weight change - Hematologic/Lymphatic Comment: none - Allergic/Immunologic Allergic/Immunologic: Reports seasonal allergies Past Medical History Past Medical History: Asthma Additional Past Medical History / Comment(s): Allergies History of Any Multi-Drug Resistant Organisms: None Reported Past Surgical History: Section, Tonsillectomy Additional Past Surgical History / Comment(s): Partial Thyroidectomy Past Anesthesia/Blood Transfusion Reactions: No Reported Reaction Past Psychological History: No Psychological Hx Reported Smoking Status: Never smoker Past Alcohol Use History: None Reported Past Drug Use History: None Reported Medications and Allergies Home Medications Medication Instructions Recorded Confirmed Type Budesonide-Formot 160-4.5 Mcg 2 puff INHALATION BID 11/08/22 11/17/22 History [Symbicort 160-4.5 Mcg Inhaler] Loratadine [Claritin] 10 mg PO DAILY 11/08/22 11/17/22 History Montelukast [Singulair] 10 mg PO DAILY 11/08/22 11/17/22 History Propranolol [Inderal] 20 mg PO BID 11/08/22 11/17/22 History Allergies Objective - Vital Signs Vital signs: Vital Signs Temp 98.1 F 05/09/24 13:14 Pulse 86 05/09/24 13:14 Resp 16 05/09/24 13:14 BP 107/72 05/09/24 13:14 Pulse Ox 100 05/09/24 13:14 FiO2 Intake & Output 05/08/24 05/09/24 05/09/24 18:59 06:59 18:59 Weight 54.431 kg - Constitutional General appearance: Present: cooperative - EENT Eyes: Present: EOMI ENT: Present: hearing grossly normal - Neck Neck: Present: normal ROM - Respiratory Respiratory: bilateral: CTA - Cardiovascular Rhythm: regular Heart sounds: normal: S1, S2 - Gastrointestinal General gastrointestinal: Present: soft - Integumentary Integumentary: Present: normal turgor - Musculoskeletal Musculoskeletal: Present: gait normal - Psychiatric Psychiatric: Present: A&O x's 3, appropriate affect, intact judgment & insight - Additional findings Additional findings: Breast Exam: BRA: 36C Inspection: Bilateral grade 2 ptosis, well-healed scar right breast from prior surgery Palpation: Right breast: Multi-positional exam fibrocystic changes, postradiation and s urgical changes, tender at site of prior lumpectomy Right axilla: No adenopathy of concern Left breast: Multi-positional exam fibrocystic changes, no dominant masses or nodules of concern Left axilla: No adenopathy of concern Assessment and Plan Assessment: Impression: Patient doing well at this time status post right breast lumpectomy and radiation therapy for 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 Smith, Mariah Ayala
== END ==
LOC: WWCWWP 12:12
PROVIDERS: ATTEND Surgery
DX: R92.8 Other abnormal and inconclusive findings on diagnostic imaging of breast (principal); D05.11 Intraductal carcinoma in situ of right breast; Z80.3 Family history of malignant neoplasm of breast; Z92.3 Personal history of irradiation; Z88.2 Allergy status to sulfonamides

== ENCOUNTER → 2024-11-14 | Outpatient (CLI) | payer MEDICARE, OTHER ==
[2024-11-14 13:17] VITALS: BP 120/77; PULSE 50; RESP 17; TEMP 97.7
--- NOTE | 2024-11-14 13:35 | P.PN ---
Subjective Progress Note Date: 11/14/24 Principal diagnosis: DCIS right breast 11-14-24 Principal diagnosis: DCIS right breast 202210-29-23 Erum is a 68-year-old white female who was initially seen in consultation for Mariah Ayala regarding right breast mammographic abnormality. She underwent a bilateral mammogram on 2822. This revealed an area of concern in the right breast and right breast diagnostic mammogram was performed. This led to stero tactic core biopsy on this revealed high-grade DCIS. The area extended approximately 2.5 cm. She has not felt anything of concern in either breast. She was not complaining of any recent trauma or infection in the breast. The patient on 01-17-23 underwent lumpectomy and SNB. She had a 2.1 cm area of grade 3 DCIS, node (-). Close posterior margin represented at tumor board and re-excision not recommended. Note 05-09-23 Dr. Wall reviewed completed radiation on 04-04-23; focally (+) posterior margin note 03-02-23 DR. Hall reviewed no endocrine therapy as hormone receptor (-) She has noted an area of tenderness in the lateral aspect of the left breast, it has not changed since her surgery Bilateral mammogram on 10-09-23 BIRAD 2; personally reviewed 05-09-24 She is not complaining of any new lumps masses or nodules of concern in either breast. Bilateral mammogram 10-09-23 BIRRAD 2 no hormone therapy note 11-14-23 Dr. Valero reviewed 11-14-24 The patient on 01-17-23 underwent right lumpectomy and SNB. She had a 2.1 cm area of grade 3 DCIS, node (-). Close posterior margin represented at tumor board and re-excision not recommended. bilateral mammogram on 10-11-24 BIRAD 2 personally reviewed and interpreted note 10-29-24 Dr. Valero radiation oncology reviewed no evidence of recurrent disease; complaining of tightness in her right shoulder and lymphedema and was referred to physical therapy she completed radiation therapy on 04-04-2023 The patient is not complaining of any new lumps masses or nodules of concern in either breast. She does have tenderness at the lumpectomy site and was recommended to do some physical therapy as per radiation oncology. She is doing this personally at home and is not interested in seeing a physical therapist at this time. She is not complaining of any difficulty with mobility at this time. CAffiene: 1 cup/day nicotine: none chocolate: rare BCP: 15 years hormones: patch fro 6 months at menopause Family History: sister: breast cancer dx. at 56 father: testicular cancer Hormonal history: Menarche: 14 , breast fed: yes, age at first : 26 menopause: 43 Surgical History: subtotal thyroidectomy goiter no cancer tonsil 2 C-sections Medical History: COPD essential termers 1 1/2 years ? cause SociaL History: nicotine: none alcohol: none drugs: none - Constitutional Constitutional: Denies chills, Denies fever - EENT Eyes: denies blurred vision, denies pain Ears: deny: decreased hearing, tinnitus Ears, nose, mouth and throat: Denies headache, Denies sore throat - Breasts Breasts: bilateral: as per HPI - Cardiovascular Comment: COPD Cardiovascular: Reports shortness of breath, Denies chest pain - Respiratory Comment: COPD - Gastrointestinal Gastrointestinal: Denies abdominal pain, Denies diarrhea, Denies nausea, Denies vomiting - Genitourinary (Female) Genitourinary: Denies dysuria, Denies hematuria - Menstruation Menstruation: Reports postmenopausal - Musculoskeletal Musculoskeletal: Denies myalgias - Integumentary Comment: [place] Integumentary: Reports rash, Denies pruritus - Neurological Neurological: Reports as per HPI - Psychiatric Psychiatric: Denies anxiety, Denies depression - Endocrine Endocrine: Denies fatigue, Denies weight change - Hematologic/Lymphatic Comment: none - Allergic/Immunologic Allergic/Immunologic: Reports seasonal allergies Past Medical History Past Medical History: Asthma Additional Past Medical History / Comment(s): Allergies History of Any Multi-Drug Resistant Organisms: None Reported Past Surgical History: Section, Tonsillectomy Additional Past Surgical History / Comment(s): Partial Thyroidectomy Past Anesthesia/Blood Transfusion Reactions: No Reported Reaction Past Psychological History: No Psychological Hx Reported Smoking Status: Never smoker Past Alcohol Use History: None Reported Past Drug Use History: None Reported Medications and Allergies Home Medications Medication Instructions Recorded Confirmed Type Budesonide-Formot 160-4.5 Mcg 2 puff INHALATION BID 11/08/22 11/17/22 History [Symbicort 160-4.5 Mcg Inhaler] Loratadine [Claritin] 10 mg PO DAILY 11/08/22 11/17/22 History Montelukast [Singulair] 10 mg PO DAILY 11/08/22 11/17/22 History Propranolol [Inderal] 20 mg PO BID 11/08/22 11/17/22 History Allergies Objective - Vital Signs Vital signs: Vital Signs Temp 97.7 F 11/14/24 13:15 Pulse 50 L 11/14/24 13:15 Resp 17 11/14/24 13:15 BP 120/77 11/14/24 13:15 Pulse Ox 95 11/14/24 13:15 FiO2 Intake & Output 11/13/24 11/14/24 11/14/24 18:59 06:59 18:59 Weight 55.338 kg - Constitutional General appearance: Present: cooperative - EENT Eyes: Present: EOMI ENT: Present: hearing grossly normal - Neck Neck: Present: normal ROM - Respiratory Respiratory: bilateral: CTA - Cardiovascular Rhythm: regular Heart sounds: normal: S1, S2 - Integumentary Integumentary: Present: normal turgor - Musculoskeletal Musculoskeletal: Present: gait normal - Psychiatric Psychiatric: Present: A&O x's 3, appropriate affect, intact judgment & insight - Additional findings Additional findings: Breast Exam: BRA: 36C Inspection: Bilateral grade 2 ptosis, well-healed scar right breast from prior surgery Palpation: Right breast: Multi-positional exam fibrocystic changes, postradiation and surgical changes, tender at site of prior lumpectomy Right axilla: No adenopathy of concern Left breast: Multi-positional exam fibrocystic changes, no dominant masses or nodules of concern Left axilla: No adenopathy of concern Assessment and Plan Assessment: Impression: Patient doing well at this time status post right breast lumpectomy and radiation therapy for 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
== END ==
LOC: WWCWWP 12:18
PROVIDERS: ATTEND Surgery
DX: D05.11 Intraductal carcinoma in situ of right breast (principal); Z92.3 Personal history of irradiation; Z80.3 Family history of malignant neoplasm of breast; Z90.11 Acquired absence of right breast and nipple; Z88.2 Allergy status to sulfonamides

== ENCOUNTER → 2025-03-12 | Outpatient (CLI) | payer MEDICARE, OTHER ==
[2025-03-12 21:40] LABS: Alternaria alternata IgE <0.10 kU/L; Aspergillus fumagatus IgE 0.27 kU/L; Cat Epith & Dander IgE <0.10 kU/L; Cladosporian herbarum IgE <0.10 kU/L; Dermato. farinae IgE <0.10 kU/L; Oak IgE <0.10 kU/L; Ragweed,Common IgE <0.10 kU/L; Red Top (Bentgrass) IgE <0.10 kU/L
== END | disposition home or self-care (01) ==
LOC: LABWHC1 13:55
PROVIDERS: ATTEND Internal Medicine
DX: J45.909 Unspecified asthma, uncomplicated (principal)
CPT/HCPCS: 36415; 82785; 85008; 86003